=== PATIENT | female | born 1985 | race Hispanic/Latino ===

== ENCOUNTER 2016-07-25 19:43 | Emergency (ER) | payer MEDICARE, MEDICAID ==
[~2016-07-25] VITALS: Ht 157.5 cm; Wt 141.0 kg
[~2016-07-25 19:43] MED LIST: ACET-171 PO; CYCL5TAB PO; OXYC5TAB72 PO; PREN-148 PO
[2016-07-25 19:49] VITALS: BP 127/88; PULSE 92; RESP 24; O2SAT 100
--- NOTE | 2016-07-25 20:08 | ED.REPORT ---
HPI-Chest Pain Under 40 Date of Service Jul 25, 2016 ED Provider: Francisco Cervantes DO A 31 year old female with no pertinent medical history is referred to the ED due to chest pain. The pt has been experiencing headache, sore throat, nausea, minimal coughing and general malaise for two days and began feeling chest pain today. The chest pain radiates into her arms and neck and makes it difficult to breath. There are two children in the pt's home who have recently been diagnosed with strep throat. Nursing Notes Stated Complaint: CHEST PAIN Chief Complaint: Chest Pain Nursing Notes Reviewed: Yes Allergies: Coded Allergies: No Known Allergies (Verified , 04/14/04) Scheduled Vit No.124/Iron/FA ( Vitamin Tablet) 27 Mg Iron-800 Mcg Tablet 1 EACH PO DAILY Scheduled PRN Acetaminophen (Acetaminophen) 500 Mg Tablet 500 MG PO DAILY PRN PRN For Pain Cyclobenzaprine (Cyclobenzaprine) 5 Mg Tablet 5 MG PO HS PRN PRN Spasm oxyCODONE (oxyCODONE) 5 Mg Tablet 10 MG PO Q4H PRN PRN For Pain General Time Seen by MD: 20:06 Chief Complaint Chest pain Hx Obtained From: Patient Arrived By: Walk-in Sudden in Onset?: No Symptom Duration: Since onset Recent Healthcare: No recent doctor visit, No recent hospitalization Similar Sx Previous: No Past Medical History Past Medical History none reported Past Surgical History none reported Family History noncontributory Smoking History Unknown if Ever Smoker Social History Other Social History: Good social support, , Lives with children, Local resident Ambulatory Status Independent Review of Systems Constitutional: Reports: Malaise Respiratory: Reports: Non-productive cough, Denies: Shortness of breath Cardiovascular: Reports: Chest pain GI: Reports: Nausea, Denies: Abdominal pain Musculoskeletal: Denies: Back pain Skin: Denies Rash Neurologic: Denies: Headache Complete sys rev & neg: except as marked. Ears / Nose / Throat: Reports: Sore throat Physical Exam Initial Vital Signs Vital Signs (First) Date Time Temp Pulse Resp B/P Pulse Ox O2 Delivery O2 Flow Rate FiO2 07/25/16 19:49 36.6 92 24 127/88 100 Room Air Initial VS: Reviewed General/Constitutional: Awake, Alert Respiratory / Chest: Atraumatic, Breath sounds = bilat, No respiratory distress coarse breath sounds Cardiovascular: Heart rate NL, Regular rhythm, Heart sounds NL Neck: Atraumatic, Supple, Full range of motion Abdomen: Atraumatic, Soft, Non-tender Back: Atraumatic, Inspection NL, Full range of motion, Painless range of motion Lower Extremity / Pelvis / MS: Atraumatic, Full range of motion Skin: Atraumatic, Color NL, No rash, Warm, Dry Neurologic: Oriented X3, Speech NL, No motor deficits, No sensory deficits Psychiatric: Affect NL, Mood NL Head / Eyes: Atraumatic, Normocephalic, PERRL, EOMI ENT: Atraumatic, Airway patent, Mucous membranes moist tonsillar hypertrophy with exudates Upper Extremity / MS: Atraumatic, Full range of motion Interpretation & Diagnostics Interpretation & Diagnostics: CT Angio Chest Pulmonary Embolism: IMPRESSION: Large body habitus, which mildly degrades quality of visualization but no pulmonary embolus is seen and no acute disease over the lung parenchyma is found. Lab Results Interpretation Result Diagram: 07/25/162035 Test 07/25/16 20:36 07/25/16 22:18 D-Dimer 1.06mg/L FEU (<0.50) Sodium Level 136mEq/L (134-144) Potassium Level 3.9mEq/L (3.5-5.2) Chloride Level 100mEq/L (97-108) Carbon Dioxide Level 23mmol/L (18-29) Blood Urea Nitrogen 18mg/dL (6-20) Creatinine 0.63mg/dL (0.57-1.00) Estimat Glomerular Filtration Rate 156mL/min (>59) Glucose Level 106mg/dL (60-99) Calcium Level 9.2mg/dL (8.5-10.1) Hold Gu[place]pa Top Tube Received (Received) Troponin T 0.010ug/L (0.0-0.011) Pulse Oximetry Interpretation Pulse Oximetry Interpretation: 100% on room air Pulse Oximetry: Pulse Ox normal ECG Interpretation ECG Interpretation: normal sinus rhythm with a rate of 81 Time: 20:20 Interpreted by: ED physician X-Ray Chest Interpretation Chest Xray Interpretation: IMPRESSION: Normal. Dictated by: Arnulfo Lopez M.D. on 07/25/2016 at 20:52 Approved by: Arnulfo Lopez M.D. on 07/25/2016 at 20:52 Interpretation / Wet Read by: Interpret - Radiologist Re-Eval/Medical Decision Med Decision/Clinical Course Pulmonary emboli and myocardial infarction ruled out. I suspect that she has bronchitis with bronchospasm and pleurisy. She will be placed on Zithromax, albuterol and short course of Rohwer. Recommend close outpatient follow-up. Routine opiate warnings were given. Re-Evaluation/Progress : Time of Eval: 23:14 Re-Evaluation/Progress Note: Pt rechecked, who is resting comfortably. The diagnosis and plan for discharge is discussed. The pt understands and agrees with the plan. All questions are addressed at this time. Counseled Regarding: Diagnosis, Lab results, Need for follow-up, When/why to return to ED Discharge & Departure Primary Impression: Chest pain Chest pain type: chest pain on breathing Qualified Code: R07.1 - Chest pain on breathing Additional Impressions: Bronchitis Pharyngitis Pharyngitis/tonsillitis etiology: unspecified etiology Qualified Code: J02.9 - Acute pharyngitis, unspecified Disposition: Home Discharge Condition All VS Reviewed: Yes Condition: Stable Patient Instructions: Acute Bronchitis (ED), Chest Pain (ED), Pharyngitis (GEN) Additional Instructions: The CAT scan did not demonstrate a blood clot. Your EKG was normal. The serial heart blood tests were negative. The strep screen was negative. I suspect that you have bronchitis with pleuritic chest pain. Finish the Z-Daryl. This is for an infection. Take 1-2 Rohwer every 6 hours as needed for pain. Do not drive or drink alcohol or consume acetaminophen while taking the Rohwer. This is an opiate. Set up a follow-up to primary care physician. Return for any problems or any new or worrisome symptoms. Referrals: Estela Rand MD (PCP) Nirmalaibleatha Attestation Portions of this note were transcribed by Darryl Connors. I, Dr. Cervantes personally performed the history, physical exam and medical decision-making; I reviewed and confirmed the accuracy of the information in the transcribed note. Signed by: Edouard Benitez, 07/25/16 and 2317. copies to: Estela Rand MD, Todd P DO Jul 25, 2016 20:08 DARRYL CONNORS Jul 25, 2016 20:16
[2016-07-25] MEDS ORDERED: Albuterol-Ipratropium 3 mL Inhalation Solution NEB ONE (20:15)
[2016-07-25 20:48] VITALS: PULSE 95; RESP 16; O2SAT 95
--- NOTE | 2016-07-25 20:54 | DRSVH ---
PROCEDURE: X-RAY CHEST, TWO VIEWS ([id number]) INDICATIONS: chest pain, cough TECHNIQUE: 2 views of the chest were acquired. COMPARISON: None. FINDINGS: Surgical changes and devices: None. Lungs and pleura: No pleural effusions or pneumothorax. Lungs are clear. Mediastinum: Mediastinal contours are normal. Heart size is normal. Bones and chest wall: No suspicious bony abnormalities. Soft tissues appear unremarkable. IMPRESSION: Normal. Dictated by: Arnulfo Lopez M.D. on 07/25/2016 at 20:52 Approved by: Arnulfo Lopez M.D. on 07/25/2016 at 20:52
[2016-07-25 21:24] LABS: TROPONIN T 0.01 ug/L (0.0-0.011)
--- NOTE | 2016-07-25 21:56 | DRSVH ---
PROCEDURE: CT ANGIO CHEST PULMONARY EMBOLISM ([id number]) INDICATIONS: chest pain, short of breath, tachypnea, -Xray TECHNIQUE: After the administration of intravenous contrast, 2 mm thick sections acquired from the pulmonary api juanita to the posterior costophrenic angles. 3-dimensional maximum intensity projection (MIP) coronal a nd sagittal reformats were then acquired through the thorax. For radiation dose reduction, the follo wing was used: automated exposure control, adjustment of mA and/or kV according to patient size. COMPARISON: [facility], CR, XR CHEST 2VW, 07/25/2016, 20:28. FINDINGS: Image quality: Moderately degraded by large patient body habitus. Pulmonary arteries: Pulmonary arteries are normal in size, and demonstrate no intraluminal filling d efects to suggest central pulmonary embolism. Lungs and pleura: Lungs are clear. No pleural effusions or pneumothorax. Central and peripheral ai rways are patent. Mediastinum: Heart size is normal, without pericardial effusion. No mediastinal or hilar adenopathy . Thoracic aorta is normal in caliber and enhancement. Esophagus is normal in caliber, without hiat al hernia. Bones and chest wall: No suspicious bony lesions. Ribs and thoracic spine appear intact throughout. Thyroid gland appears normal where well visualized. No axillary or supraclavicular adenopathy. Abdomen: Visualized upper abdominal solid organs appear normal in the early arterial phase of enhanc ement. IMPRESSION: Large body habitus, which mildly degrades quality of visualization but no pulmonary embo johana is seen and no acute disease over the lung parenchyma is found. Dictated by: Arnulfo Lopez M.D. on 07/25/2016 at 21:52 Approved by: Arnulfo Lopez M.D. on 07/25/2016 at 21:54
[2016-07-25 22:14] VITALS: BP 131/81; PULSE 80; RESP 20; O2SAT 98
[2016-07-25] MEDS ORDERED: _HYDROcodone/APAP 5-325 mg Tablet PO PRN (23:10)
[2016-07-26] MEDS ORDERED: _Proair 200 Puff/8.5 GM Inhaler INHALATION PRN
[2016-07-26 00:15] VITALS: BP_SYST 131; PULSE 98; RESP 18; O2SAT 98
== END 2016-07-26 00:17 | disposition home or self-care (01) ==
LOC: SED 19:43
DX: R07.1 Chest pain on breathing (principal); J40 Bronchitis, not specified as acute or chronic; J02.9 Acute pharyngitis, unspecified; R42 Dizziness and giddiness; R11.0 Nausea; R05 Cough; R53.1 Weakness
CPT/HCPCS: 36415; 71020; 71275; 80048; 84484; 85378; 87880; 93005; 94664; 99285; G0463; J7620; Q9967